=== PATIENT | male | born 1995 | race Caucasian/White ===

== ENCOUNTER 2017-03-03 21:49 | Emergency (ER) | payer MEDICAID ==
[2017-03-04 04:31] LABS: microscopic required? YES; urine erythrocyte TRACE (NEGATIVE)
[2017-03-04 06:29] VITALS: BP 129/66
== END 2017-03-04 06:29 | disposition home or self-care (01) ==
LOC: ED 21:49
PROVIDERS: Emergency Medicine
DX: N45.2 Orchitis (principal); N45.1 Epididymitis
CPT/HCPCS: J0696; J2270; Q0092; Q0162

== ENCOUNTER 2019-09-05 19:38 | Emergency (ER) | payer SELFPAY ==
[~2019-09-05] VITALS: Ht 182.9 cm; Wt 98.2 kg
[2019-09-05 19:57] VITALS: Ht 182.9 cm; Wt 98.2 kg
[2019-09-05 21:43] VITALS: BP 132/76
== END 2019-09-05 21:43 | disposition home or self-care (01) ==
LOC: ED 19:38
DX: S39.012A Strain of muscle, fascia and tendon of lower back, initial encounter (principal); S53.401A Unspecified sprain of right elbow, initial encounter; W17.89XA Other fall from one level to another, initial encounter; Y93.89 Activity, other specified; Y92.89 Other specified places as the place of occurrence of the external cause; Y99.8 Other external cause status